=== PATIENT | male | born 1980 | race Caucasian/White ===

== ENCOUNTER 2019-06-07 19:22 | Emergency (ER) | payer OTHER ==
[~2019-06-07] VITALS: Ht 182.9 cm; Wt 95.3 kg
[2019-06-07 20:05] VITALS: BP 148/65
--- NOTE | 2019-06-07 20:30 | NUR ---
BIBS. TO ER BED 4. AAOX4. NOT IN RESP DISTRESS. AMBULATORY. CAME IN FOR UNCONTROLLED SHAKING. PT REPORTS THAT HE IS TAKING BENZOS THAT IS NOT PRECRIBED FOR HIM. PT TAKING 1MG OF "BARS" WHICH SEEMS TO BE DESCRIBED XANAX. PT IS OUT OF THE MEDICATION AND LAST TAKEN YESTERDAY. PT IS PRESENTING WITH TREMORS. AWAITING MD FOR EVAL.
--- NOTE | 2019-06-07 21:56 | NUR ---
Patient discharged to home in stable condition. Written and verbal after care instructions given. Patient verbalizes understanding of instruction. Pt ambulatory with a steady gait
== END 2019-06-07 21:57 | disposition home or self-care (01) ==
LOC: ER 19:29
DX: F10.20 Alcohol dependence, uncomplicated (principal); Z60.2 Problems related to living alone; Y90.9 Presence of alcohol in blood, level not specified